=== PATIENT | male | born 1985 | race Caucasian/White ===

== ENCOUNTER 2016-11-23 18:31 | Emergency (ER) | payer BC ==
[2016-11-23 18:38] VITALS: BP 135/81
[2016-11-23] MEDS ORDERED: Tetracaine 0.5% OPTH.SOL 4 ML* 1 DROP BTL RIGHT EYE ONE (18:54)
[2016-11-23] MEDS ORDERED: Fluorescein Sodium TOPICAL* 1 MG TEST OPHTHALMIC ONE (18:54)
[2016-11-23] MEDS ORDERED: Eye Irrigation Solution 30 ML BOTTLE RIGHT EYE ONE (18:55)
--- NOTE | 2016-11-23 19:31 | UC ---
Eye Complaint HPI - HPI Summary HPI Summary: 1130 AM WAS GATHERING BRUSH. POKED RIGHT EYE WITH STICK. SINCE TIME OF INJURY HAS HAD PAIN IN RIGHT EYE. NO CHANGE IN VISION. SOME LIGHT SENSITIVITY. NO PAIN WITH EYE MOVEMENT. - History of Current Complaint Chief Complaint: UCEye Stated Complaint: EYE INJURY Time Seen by Provider: 11/23/16 18:49 Hx Obtained From: Patient, Family/Floor Coverings Salesperson Onset/Duration: Sudden Onset, Lasting Hours Timing: Intermittent Episode Lasting Severity Initially: Mild Severity Currently: Moderate Pain Intensity: 1 Pain Scale Used: 0-10 Numeric Location of Injury: Other - CORNEA RIGHT Character: Dull Aggravating Factor(s): Light, Blinking Alleviating Factor(s): Eye Drops Associated Signs And Symptoms: Positive: Photophobia, Drainage (Clear) - TEARS. Negative: Vision Impairment Bilateral, Vision Impairment Right, Vision Impairment Left, Fever, Swelling - Risk Factors Penetrating Injury Risk Factor: Negative Acute Glaucoma Risk Factors: Negative Optic Artery Occlusion Risk Factors: Negative - Allergies/Home Medications Allergies/Adverse Reactions: Allergies Allergy/AdvReac Type Severity Reaction Status Date / Time No Known Allergies Allergy Verified 11/23/16 18:38 Home Medications: Home Medications Loratadine [Claritin 10 MG CAP] 1 tab PO DAILY 11/23/16 [History Confirmed 11/23] PMH/Surg Hx/FS Hx/Imm Hx Previously Healthy: Yes - Surgical History Surgical History: None Surgery Procedure, Year, and Place: Appendectomy, 1990. ACL repair 2002. Burn graft upper right arm 07/2014 - Family History Known Family History: Positive: Hypertension - Social History Occupation: Employed Full-time Lives: With Family Alcohol Use: Occasionally Substance Use Type: None Smoking Status (MU): Former Smoker Type: Cigarettes Have You Smoked in the Last Year: No - Immunization History Most Recent Influenza Vaccination: unknown Most Recent Tetanus Shot: less then 3 yrs Review of Systems Constitutional: Negative Skin: Negative Eyes: Eye Redness, Photophobia ENT: Negative Respiratory: Negative Cardiovascular: Negative Gastrointestinal: Negative Genitourinary: Negative Motor: Negative Neurovascular: Negative Musculoskeletal: Negative Neurological: Negative Psychological: Negative Is Patient Immunocompromised?: No All Other Systems Reviewed And Are Negative: Yes Physical Exam Triage Information Reviewed: Yes Appearance: Well-Appearing, No Pain Distress, Well-Nourished Vital Signs: Initial Vital Signs Temp 99.5 F 11/23/16 18:34 Pulse 65 11/23/16 18:34 Resp 18 11/23/16 18:34 BP 135/81 11/23/16 18:34 Pulse Ox 99 11/23/16 18:34 Eyes: Positive: Conjunctiva Inflamed, Other: - FLUORESCEIN UPTAKE RIGHT EYE CORNEA AT 7 OCLOCK. 4mm X 3mm ABRASION; NEGATIVE SIDEL'S SIGN ENT Exam: Normal ENT: Positive: Normal ENT inspection, TMs normal Dental Exam: Normal Neck exam: Normal Neck: Positive: Supple, Nontender, No Lymphadenopathy Respiratory Exam: Normal Respiratory: Positive: Chest non-tender, Lungs clear, Normal breath sounds, No respiratory distress, No accessory muscle use Cardiovascular Exam: Normal Cardiovascular: Positive: RRR, No Murmur, Pulses Normal Abdominal Exam: Normal Musculoskeletal Exam: Normal Musculoskeletal: Positive: Strength Intact Neurological Exam: Normal Psychological Exam: Normal Skin Exam: Normal Eye Complaint Course/Dx - Differential Dx/Diagnosis Differential Diagnosis/HQI/PQRI: Corneal Abrasion, Foreign Body, Penetrating Injury Provider Diagnoses: RIGHT CORNEAL ABRASION Discharge - Discharge Plan Condition: Stable Disposition: HOME Prescriptions: Tobramycin 0.3% OPHTH.SUN* 2 drop RIGHT EYE Q4H #1 btl Patient Education Materials: Corneal Abrasion (ED) Referrals: Crystal Michel MD [Primary Care Provider] - Artis Reid MD [Medical Doctor] - If Needed Rodrigo Kang MD [Medical Doctor] - If Needed
== END 2016-11-23 19:20 | disposition home or self-care (01) ==
LOC: UCEAST 18:31
DX: S05.01XA Injury of conjunctiva and corneal abrasion without foreign body, right eye, initial encounter (principal); W22.8XXA Striking against or struck by other objects, initial encounter; Y92.9 Unspecified place or not applicable
CPT/HCPCS: 99212; A9270-GY; G0463